=== PATIENT | male | born 1985 | race Caucasian/White ===

== ENCOUNTER 2022-02-02 06:11 | Day surgery (SDC) | payer OTHER ==
[~2022-02-02] VITALS: Ht 170.2 cm; Wt 84.4 kg
[~2022-02-02 06:11] MED LIST: LORA-243 PO; ceFAZolin SOD 2 GM in IV 1 EA IV ONE
[2022-02-02] MEDS ORDERED: LR 1,000 ML IV SCH ×3 (06:35→12:45)
[2022-02-02] MEDS ORDERED: INSULIN LISPRO (NovoLOG) PER UNIT SC PRN (06:35)
[2022-02-02] MEDS ORDERED: fentaNYL 100 MCG/2 ML INJECTION IV PRN ×2 (07:10→11:35)
[2022-02-02] MEDS ORDERED: dexameTHASONE 10MG/1ML VIAL PRES.FREE (J1100 PER 1MG) PN ONE (07:10)
[2022-02-02] MEDS ORDERED: EPINEPHrine INJ 1 MG/ML 1ML AMP PN ONE (07:10)
[2022-02-02] MEDS ORDERED: MIDAZOLAM INJ 2MG/2ML VIAL (J2250 PER 1MG) IV PRN (07:10)
[2022-02-02] MEDS ORDERED: ROPIvacaine 0.5% 30ML INJECTION (J2795 PER 1MG) PN ONE (07:10)
[2022-02-02] MEDS ORDERED: ONDANSETRON 4MG/2ML VIAL As Ordered ONE (07:19)
[2022-02-02] MEDS ORDERED: LIDOCAINE 2% 100MG/5ML SDV (FOR ANES.) As Ordered ONE (07:19)
[2022-02-02] MEDS ORDERED: propofoL 200 MG/20 ML VIAL As Ordered ONE (07:19)
[2022-02-02] MEDS ORDERED: METOCLOPRAMIDE INJ 10MG/2ML VIAL (J2765 PER 1) As Ordered ONE (07:19)
[2022-02-02] MEDS ORDERED: ROCURONIUM BROMIDE 50 MG/5 ML VIAL As Ordered ONE (07:19)
[2022-02-02] MEDS ORDERED: dexameTHASONE 4 MG/ML 1ML VIAL (J1100 PER 1MG) As Ordered ONE (07:20)
[2022-02-02] MEDS ORDERED: fentaNYL 100 MCG/2 ML INJECTION As Ordered ONE (07:20)
[2022-02-02] MEDS ORDERED: KETOROLAC 60MG 2ML VIAL As Ordered ONE (07:20)
[2022-02-02] MEDS ORDERED: MIDAZOLAM INJ 2MG/2ML VIAL (J2250 PER 1MG) As Ordered ONE (07:20)
[2022-02-02] MEDS ORDERED: EPINEPHrine INJ 1 MG/ML 1ML AMP As Ordered ONE ×2 (07:24→09:16)
[2022-02-02] MEDS ORDERED: LIDOCAINE 1% MDV 20ML VIAL As Ordered ONE (07:24)
[2022-02-02] MEDS ORDERED: TRANEXAMIC ACID 100 MG/ML 10ML VIAL As Ordered ONE ×2 (08:40→08:46)
[2022-02-02] MEDS ORDERED: PHENYLephrine 500MCG 5ML (100MCG/ML) SYRINGE As Ordered ONE ×2 (08:58→10:27)
[2022-02-02] MEDS ORDERED: SUGAMMADEX SODIUM 500 MG/5 ML VIAL (BRIDION) As Ordered ONE (10:27)
[2022-02-02] MEDS ORDERED: ONDANSETRON 4MG/2ML VIAL IV PRN (11:35)
[2022-02-02] MEDS: oxyCODONE 5MG TAB PO PRN ×2 (12:05→12:38)
[2022-02-02 13:42] VITALS: BP 106/57
== END 2022-02-02 14:00 | disposition home or self-care (01) ==
LOC: M SDC 06:11
PROVIDERS: ATTEND Orthopaedic Surgery
DX: S43.432A Superior glenoid labrum lesion of left shoulder, initial encounter (principal); Z53.33 Arthroscopic surgical procedure converted to open procedure; M75.102 Unspecified rotator cuff tear or rupture of left shoulder, not specified as traumatic; M19.012 Primary osteoarthritis, left shoulder; M75.22 Bicipital tendinitis, left shoulder; M75.42 Impingement syndrome of left shoulder; Z79.899 Other long term (current) drug therapy; Z86.16 Personal history of COVID-19; Y92.89 Other specified places as the place of occurrence of the external cause; Y93.9 Activity, unspecified; Y99.9 Unspecified external cause status; W00.9XXA Unspecified fall due to ice and snow, initial encounter
CPT/HCPCS: 23120; 23430; 29807; 29826; C1713; J0171; J0690; J1100; J1885; J2250; J2370; J2405; J2765; J3010